=== PATIENT | female | born 1955 | race Two or more races ===

== ENCOUNTER 2022-02-28 16:01 | Emergency (ER) | payer MEDICAID ==
[~2022-02-28] VITALS: Ht 152.4 cm; Wt 63.6 kg
[2022-02-28] MEDS ORDERED: ATOR20TA86 PO (16:17)
[2022-02-28] MEDS ORDERED: METF-1211 PO (16:17)
[2022-02-28] MEDS ORDERED: GABAPENTIN 300 MG CAPSULE PO ONE (16:45)
[2022-02-28] MEDS ORDERED: KETOROLAC TROMETHAMINE 30 MG/ML VIAL IM ONE (16:45)
[2022-02-28 17:26] LABS: GLUCOSE,POINT OF CARE 146 MG/DL (70-110)
[2022-02-28 18:35] VITALS: BP 157/86
[2022-02-28] MEDS ORDERED: TRAM50TA4 PO (18:42)
== END 2022-02-28 19:21 | disposition home or self-care (01) ==
LOC: EMS 16:01
DX: M13.861 Other specified arthritis, right knee (principal); E11.40 Type 2 diabetes mellitus with diabetic neuropathy, unspecified; F32.9 Major depressive disorder, single episode, unspecified; I10 Essential (primary) hypertension; Z79.84 Long term (current) use of oral hypoglycemic drugs
CPT/HCPCS: 73562; 82962; 96372; 99283; J1885